=== PATIENT | male | born 1940 | race Caucasian/White ===

== ENCOUNTER 2021-04-07 17:54 | Emergency (ER) | payer BC, MEDICARE ==
[~2021-04-07] VITALS: Ht 172.7 cm; Wt 81.4 kg
--- NOTE | 2021-04-07 18:32 | NUR ---
SWABBED FOR COVID-19 BY PROVIDER
[2021-04-07 18:38] LABS: BASOPHILS % (AUTO) 0 % (0-1); EOSINOPHILS % (AUTO) 1 % (1-7); LYMPHOCYTES % (AUTO) 7 % (22-44); MEAN CORPUSCULAR HEMOGLOBIN 31.4 pg (27.5-34.5); MEAN CORPUSCULAR HGB CONC 33.6 g/dL (33.2-36.2); MEAN PLATELET VOLUME 9.2 fL (7.4-10.4); MONOCYTES % (AUTO) 9 % (2-9); NEUTROPHILS % (AUTO) 84 % (42-75); PLATELET COUNT 155 x10^3/uL (130-400); RED BLOOD COUNT 4.85 x10^6/uL (4.38-5.82); RED CELL DISTRIBUTION WIDTH 13.5 % (9.4-14.8)
[2021-04-07 18:49] LABS: ALBUMIN 3.9 g/dL (3.4-5.0); ANION GAP 3 mmol/L (5-15); CALCIUM 8.9 mg/dL (8.5-10.1); CHLORIDE 107 mmol/L (98-107)
[2021-04-07 18:52] LABS: ALANINE AMINOTRANSFERASE 17 U/L (12-78); ALKALINE PHOSPHATASE 54 U/L (45-117); BILIRUBIN,TOTAL 1.7 mg/dL (0.2-1.0); CREATININE 0.84 mg/dL (0.7-1.3); TOTAL PROTEIN 7.3 g/dL (6.4-8.2)
--- NOTE | 2021-04-07 19:30 | NUR ---
SAME TRIAGE NOTE. PT REPORTS HE WAS SENT FROM URGENT CARE FOR "LOW OXYGEN LEVEL" (UNKNOWN HOW LOW). REPORTS HE WAS TESTED FOR COVID AT URGENT CARE. RECEIVED PFIZER VACCINE (2 DOSES) EARLIER THIS YEAR.
--- NOTE | 2021-04-07 19:39 | NUR ---
EKG BEING DONE AT BS.
--- NOTE | 2021-04-07 19:46 | NUR ---
KELLIE OWEN AT BS NOW.
[2021-04-07 19:52] VITALS: BP 114/73
--- NOTE | 2021-04-07 20:03 | NUR ---
ERP AT BS.
--- NOTE | 2021-04-07 20:35 | NUR ---
ERP DISCUSSED REMERON TX WITH PT; PT DECLINED AT THIS TIME, UNDERSTANDS HE MAY RETURN WITHIN 7 DAYS IF HE CHANGES HIS MIND. D/C INSTRUCTIONS, MEDS & F/U APPT RV'WD WITH PT, HE VERBALIZES UNDERSTANDING. RX GIVEN. INSTRUCTED PT TO RETURN TO ED FOR CP, SOB, OR OTHER CONCERNING SYMPTOMS. AMBULATED OUT OF ED WITH WITHOUT DIFFICULTY.
== END 2021-04-07 20:38 | disposition home or self-care (01) ==
LOC: ED 20:00
DX: U07.1 COVID-19 (principal); J06.9 Acute upper respiratory infection, unspecified; M79.10 Myalgia, unspecified site; R94.31 Abnormal electrocardiogram [ECG] [EKG]; Z85.46 Personal history of malignant neoplasm of prostate
CPT/HCPCS: 36415; 80053; 85025; 87635; 93005; 99284

== ENCOUNTER 2021-04-20 13:39 | Emergency (ER) | payer MEDICARE ==
[~2021-04-20] VITALS: Ht 175.3 cm; Wt 78.0 kg
[2021-04-20] MEDS ORDERED: TAMS-11 PO (13:58)
[2021-04-20] MEDS ORDERED: OMEP20TA62 PO (13:58)
[2021-04-20] MEDS ORDERED: VITA1CAP PO (13:58)
[2021-04-20] MEDS ORDERED: STATIN (13:58)
--- NOTE | 2021-04-20 14:04 | NUR ---
TASK RN: PT 88-89% ON RA. RN PLACED PT ON 1L NC. PT NOW 97%.
--- NOTE | 2021-04-20 14:06 | NUR ---
FIRST CONTACT: PT TESTED POSITIVE FOR COVID "15 DAYS AGO." STATES HAS NOT GOTTEN A "NEGATIVE COVID TEST." STATES MOWED THE LAWN TODAY AND HAS NOT BE ABLE TO STOP COUGHING SINCE. +FEVERS. PT TO ROOM WITH STEADY GAIT. ATTACHED TO MONITORS. VSS. NUNEZ.
--- NOTE | 2021-04-20 14:11 | NUR ---
TASK RN: REPORT TO FISH CULLEN.
--- NOTE | 2021-04-20 14:13 | NUR ---
TO BEDSIDE FOR EVALUATION
[2021-04-20] MEDS ORDERED: ONDANSETRON 2MG/ML, 2ML ONE (14:22)
[2021-04-20] MEDS ORDERED: IBUPROFEN 200 MG TABLET ONE (14:22)
[2021-04-20] MEDS ORDERED: SODIUM CHLORIDE FLUSH 10ML SYR IVF ONE (14:30)
[2021-04-20] MEDS ORDERED: ONDANSETRON ODT 4 MG PO ONE (14:30)
[2021-04-20] MEDS ORDERED: IBUPROFEN 600 MG TABLET PO ONE (14:30)
[2021-04-20] MEDS ORDERED: SODIUM CHLORIDE 0.9% 1,000ML IVBOLUS ONE ×2 (14:30→19:30)
--- NOTE | 2021-04-20 14:33 | NUR ---
PT WITH NEW ONSET N/V WITH ONE EMSIS EPISODE WITNESSED BY THIS RN. APPROX 250 CC OF EMSIS. PT MEDICTED WITH IV ZOFRAN. OKAY PER DR. RIVERS TO USE INSTEAD OF PO ZOFRAN TAB.
[2021-04-20 14:42] LABS: BASOPHILS % (AUTO) 0 % (0-1); EOSINOPHILS % (AUTO) 0 % (1-7); LYMPHOCYTES % (AUTO) 5 % (22-44); MEAN CORPUSCULAR HEMOGLOBIN 31.5 pg (27.5-34.5); MEAN CORPUSCULAR HGB CONC 33.9 g/dL (33.2-36.2); MEAN PLATELET VOLUME 8.5 fL (7.4-10.4); MONOCYTES % (AUTO) 3 % (2-9); NEUTROPHILS % (AUTO) 91 % (42-75); PLATELET COUNT 168 x10^3/uL (130-400); RED BLOOD COUNT 4.99 x10^6/uL (4.38-5.82); RED CELL DISTRIBUTION WIDTH 13.7 % (9.4-14.8)
[2021-04-20 14:56] LABS: ALBUMIN 3.5 g/dL (3.4-5.0); ANION GAP 7 mmol/L (5-15); CALCIUM 9.3 mg/dL (8.5-10.1); CHLORIDE 109 mmol/L (98-107); CREATININE 0.78 mg/dL (0.7-1.3)
--- NOTE | 2021-04-20 15:25 | NUR ---
pt resting vss. nadn.
[2021-04-20] MEDS ORDERED: ALBUTEROL SULFATE 2.5 MG/3 ML ONE (15:56)
[2021-04-20] MEDS ORDERED: ALBUTEROL SULFATE 2.5 MG/3 ML NPPB ONE (16:00)
[2021-04-20] MEDS ORDERED: ACETAMINOPHEN 500 MG TABLET PO ONE (16:30)
[2021-04-20 16:34] LABS: MICROSCOPIC NOT IND
[2021-04-20] MEDS ORDERED: ACETAMINOPHEN 500 MG TABLET ONE (16:49)
[2021-04-20] MEDS ORDERED: FILTER 0.22 MICRON IV ONE (17:30)
[2021-04-20] MEDS ORDERED: CASIRIVIMAB 600 MG, IMDEVIMAB (REGN10987) 600 MG in SODIUM CHLORIDE 0.9% 250 ML IVPB ONE (17:30)
--- NOTE | 2021-04-20 18:49 | NUR ---
REPORT TO DESIREE WHITTEN.
--- NOTE | 2021-04-20 19:21 | NUR ---
RECIEVED REPORT FROM FISH CULLEN. FIRST CONTACT WITH PT. ENRIQUE. PT REPORTS IMPROVEMENT OF SYMPTOMS SINCE BEING IN ER. BLOOD PRESSURE 94/55. NOTIFIED MD. SEE EMAR FOR NEW ORDERS.
--- NOTE | 2021-04-20 19:49 | NUR ---
NADN. PT TOLERATED WELL.
[2021-04-20 20:17] VITALS: BP 90/50
--- NOTE | 2021-04-20 20:17 | NUR ---
NOTIFITED OF PT BP AND HE IS OKAY WITH PT BEING D/C
== END 2021-04-20 20:29 ==
LOC: ED 15:15
DX: U07.1 COVID-19 (principal); J06.9 Acute upper respiratory infection, unspecified; R50.9 Fever, unspecified; R00.0 Tachycardia, unspecified; Z85.46 Personal history of malignant neoplasm of prostate
CPT/HCPCS: 36415; 71045; 80048; 81003; 82040; 83605; 84145; 85025; 87040; 94640; 96360; 96361; 99285; J7030; J7613; M0243; Q0162